=== PATIENT | female | born 1975 | race Caucasian/White ===

== ENCOUNTER 2019-03-03 15:19 | Emergency (ER) | payer SELFPAY ==
--- NOTE | 2019-03-03 15:24 | Emergency Department Report ---
Blank Doc - Documentation Documentation: 44 y o Diabetic female was sent to Ed from clinic due to elevated glucose due to no meds in 6 months here for treatment denies pain, n/v/d or any complaints
[2019-03-03 15:27] VITALS: BP 125/50
[2019-03-03 15:50] LABS: Basophils % (Auto) 0.7 % (0.0-1.8); Eosinophils # (Auto) 0.2 K/mm3 (0.0-0.4); Eosinophils % (Auto) 2.5 % (0.0-4.3); Lymphocytes # (Auto) 1.9 K/mm3 (1.2-5.4); Lymphocytes % (Auto) 29.4 % (13.4-35.0); Mean Corpuscular HGB Conc 33 % (30-34); Mean Corpuscular Volume 78 fl (79-97); Monocytes # (Auto) 0.5 K/mm3 (0.0-0.8); Monocytes % (Auto) 7.3 % (0.0-7.3); Platelet Count 281 K/mm3 (140-440); Red Cell Distribution Width 14.5 % (13.2-15.2)
[2019-03-03 16:07] LABS: Bacteria,Urine 1+ /HPF (Negative); Bilirubin,Urine NEG (Negative); Blood,Urine MOD (Negative); Color,Urine Straw (Yellow); Protein,Urine <15 mg/dL mg/dL (Negative); Urobilinogen,Urine < 2.0 mg/dL (<2.0)
[2019-03-03 16:21] LABS: Alanine Aminotransferase 15 units/L (7-56); Albumin 3.6 g/dL (3.9-5); BUN/Creatinine Ratio 35; Blood Urea Nitrogen 14 mg/dL (7-17); Hemolysis Index 6
[2019-03-03] MEDS ORDERED: HumuLIN R IV ONE (16:32)
[2019-03-03] MEDS ORDERED: NACL 0.9% 1000 ML 1,000 ML IV ONE (16:32)
[2019-03-03 16:42] LABS: HCG Qualitative,Urine Negative (Negative)
--- NOTE | 2019-03-03 16:46 | Emergency Department Report ---
ED General Adult HPI - General Chief complaint: Hyperglycemia Stated complaint: HYPERGLYCEMIA Time Seen by Provider: 03/03/19 15:20 Source: patient, family, old records reviewed Mode of arrival: Ambulatory Limitations: Language Barrier - History of Present Illness Initial comments: 44-year-old female with a past medical history of sub-[id number] diabetes presents to the hospital complaints of hypoglycemia. Patient was at her primary care doctor's office when her glucose was found to be elevated. She's noncompliant with her unknown oral medication 6 months. She states she feels fine other than increased urinary frequency. She denies dysuria, dizziness, shortness of breath, nausea, vomiting, abdominal pain, or extremity pain. - Related Data Previous Rx's Medication Instructions Recorded Last Taken Type Acetaminophen/Codeine [Tylenol #3] 1 tab PO Q6H PRN #10 tab 05/15/14 Unknown Rx Ibuprofen [Motrin] 800 mg PO Q8H PRN #14 tablet 05/15/14 Unknown Rx metFORMIN [Glucophage] 500 mg PO BID #60 tablet 03/03/19 Unknown Rx Allergies Allergy/AdvReac Type Severity Reaction Status Date / Time No Known Allergies Allergy Unverified 05/15/14 09:00 ED Review of Systems ROS: Stated complaint: HYPERGLYCEMIA Other details as noted in HPI Comment: All other systems reviewed and negative ED Past Medical Hx - Past Medical History Previous Medical History?: Yes Hx Diabetes: Yes - Surgical History Past Surgical History?: No - Social History Smoking Status: Never Smoker Substance Use Type: Prescribed - Medications Home Medications: Home Medications Medication Instructions Recorded Confirmed Last Taken Type Acetaminophen/Codeine [Tylenol #3] 1 tab PO Q6H PRN #10 tab 05/15/14 Unknown Rx Ibuprofen [Motrin] 800 mg PO Q8H PRN #14 tablet 05/15/14 Unknown Rx metFORMIN [Glucophage] 500 mg PO BID #60 tablet 03/03/19 Unknown Rx ED Physical Exam - General Limitations: Language Barrier - Other Other exam information: General: No limitations, patient is alert in no acute distress Head exam: Atraumatic, normocephalic Eyes exam: Normal appearance, nonicteric sclera intact ENT: Moist mucous membrane Neck exam: Normal inspection, full range of motion, no meningismus nontender Respiratory exam: Clear to auscultation bilateral, no wheezes, rales, crackles Cardiovascular: Normal rate and rhythm, normal heart sounds Abdomen: Soft, nondistended, and nontender, with normal bowel sounds, no rebound, or guarding Extremity: Full range of motion normal inspection no deformity Back: Normal Inspection, full range of motion, no tenderness Neurologic: Alert, oriented x3, cranial nerves intact, no motor or sensory deficit Psychiatric: normal affect, normal mood Skin: Warm, dry, intact ED Course Vital Signs 03/03/19 03/03/19 15:23 17:54 Temperature 98.6 F Pulse Rate 89 Respiratory 18 18 Rate Blood Pressure 125/50 O2 Sat by Pulse 98 98 Oximetry ED Medical Decision Making - Lab Data Result diagrams: 03/03/19 15:38 03/03/19 15:38 Lab Results 03/03/19 03/03/19 03/03/19 Range/Units 15:33 15:38 15:38 WBC 6.3 (4.5-11.0) K/mm3 RBC 5.00 (3.65-5.03) M/mm3 Hgb 13.0 (10.1-14.3) gm/dl Hct 39.0 (30.3-42.9) % MCV 78 L (79-97) fl MCH 26 L (28-32) pg MCHC 33 (30-34) % RDW 14.5 (13.2-15.2) % Plt Count 281 (140-440) K/mm3 Lymph % (Auto) 29.4 (13.4-35.0) % [place] % (Auto) 7.3 (0.0-7.3) % Eos % (Auto) 2.5 (0.0-4.3) % Baso % (Auto) 0.7 (0.0-1.8) % Lymph # 1.9 (1.2-5.4) K/mm3 [place] # 0.5 (0.0-0.8) K/mm3 Eos # 0.2 (0.0-0.4) K/mm3 Baso # 0.0 (0.0-0.1) K/mm3 Seg Neutrophils % 60.1 (40.0-70.0) % Seg Neutrophils # 3.8 (1.8-7.7) K/mm3 VBG pH (7.320-7.420) Sodium 134 L (137-145) mmol/L Potassium 3.9 (3.6-5.0) mmol/L Chloride 99.6 (98-107) mmol/L Carbon Dioxide 23 (22-30) mmol/L Anion Gap 15 mmol/L BUN 14 (7-17) mg/dL Creatinine 0.4 L (0.7-1.2) mg/dL Estimated GFR > 60 ml/min BUN/Creatinine Ratio 35 % Glucose 384 H (65-100) mg/dL POC Glucose 376 H (70-105) Calcium 9.0 (8.4-10.2) mg/dL Total Bilirubin 0.50 (0.1-1.2) mg/dL AST 13 (5-40) units/L ALT 15 (7-56) units/L Alkaline Phosphatase 101 (35-129) units/L Total Protein 7.1 (6.3-8.2) g/dL Albumin 3.6 L (3.9-5) g/dL Albumin/Globulin Ratio 1.0 % Urine Color (Yellow) Urine Turbidity (Clear) Urine pH (5.0-7.0) Ur Specific [place] (1.003-1.030) Urine Protein (Negative) mg/dL Urine Glucose (UA) (Negative) mg/dL Urine Ketones (Negative) mg/dL Urine Blood (Negative) Urine Nitrite (Negative) Urine Bilirubin (Negative) Urine Urobilinogen (<2.0) mg/dL Ur Leukocyte Esterase (Negative) Urine WBC (Auto) (0.0-6.0) /HPF Urine RBC (Auto) (0.0-6.0) /HPF U Epithel Cells (Auto) (0-13.0) /HPF Urine Bacteria (Auto) (Negative) /HPF Urine HCG, Qual (Negative) 03/03/19 03/03/19 03/03/19 Range/Units 15:38 15:40 15:40 WBC (4.5-11.0) K/mm3 RBC (3.65-5.03) M/mm3 Hgb (10.1-14.3) gm/dl Hct (30.3-42.9) % MCV (79-97) fl MCH (28-32) pg MCHC (30-34) % RDW (13.2-15.2) % Plt Count (140-440) K/mm3 Lymph % (Auto) (13.4-35.0) % [place] % (Auto) (0.0-7.3) % Eos % (Auto) (0.0-4.3) % Baso % (Auto) (0.0-1.8) % Lymph # (1.2-5.4) K/mm3 [place] # (0.0-0.8) K/mm3 Eos # (0.0-0.4) K/mm3 Baso # (0.0-0.1) K/mm3 Seg Neutrophils % (40.0-70.0) % Seg Neutrophils # (1.8-7.7) K/mm3 VBG pH 7.380 (7.320-7.420) Sodium (137-145) mmol/L Potassium (3.6-5.0) mmol/L Chloride (98-107) mmol/L Carbon Dioxide (22-30) mmol/L Anion Gap mmol/L BUN (7-17) mg/dL Creatinine (0.7-1.2) mg/dL Estimated GFR ml/min BUN/Creatinine Ratio % Glucose (65-100) mg/dL POC Glucose (70-105) Calcium (8.4-10.2) mg/dL Total Bilirubin (0.1-1.2) mg/dL AST (5-40) units/L ALT (7-56) units/L Alkaline Phosphatase (35-129) units/L Total Protein (6.3-8.2) g/dL Albumin (3.9-5) g/dL Albumin/Globulin Ratio % Urine Color Straw (Yellow) Urine Turbidity Clear (Clear) Urine pH 5.0 (5.0-7.0) Ur Specific [place] 1.037 H (1.003-1.030) Urine Protein <15 mg/dl (Negative) mg/dL Urine Glucose (UA) >=500 (Negative) mg/dL Urine Ketones Tr (Negative) mg/dL Urine Blood Mod (Negative) Urine Nitrite Neg (Negative) Urine Bilirubin Neg (Negative) Urine Urobilinogen < 2.0 (<2.0) mg/dL Ur Leukocyte Esterase Neg (Negative) Urine WBC (Auto) 2.0 (0.0-6.0) /HPF Urine RBC (Auto) 2.0 (0.0-6.0) /HPF U Epithel Cells (Auto) 1.0 (0-13.0) /HPF Urine Bacteria (Auto) 1+ (Negative) /HPF Urine HCG, Qual Negative (Negative) 03/03/19 03/03/19 Range/Units 17:19 18:28 WBC (4.5-11.0) K/mm3 RBC (3.65-5.03) M/mm3 Hgb (10.1-14.3) gm/dl Hct (30.3-42.9) % MCV (79-97) fl MCH (28-32) pg MCHC (30-34) % RDW (13.2-15.2) % Plt Count (140-440) K/mm3 Lymph % (Auto) (13.4-35.0) % [place] % (Auto) (0.0-7.3) % Eos % (Auto) (0.0-4.3) % Baso % (Auto) (0.0-1.8) % Lymph # (1.2-5.4) K/mm3 [place] # (0.0-0.8) K/mm3 Eos # (0.0-0.4) K/mm3 Baso # (0.0-0.1) K/mm3 Seg Neutrophils % (40.0-70.0) % Seg Neutrophils # (1.8-7.7) K/mm3 VBG pH (7.320-7.420) Sodium (137-145) mmol/L Potassium (3.6-5.0) mmol/L Chloride (98-107) mmol/L Carbon Dioxide (22-30) mmol/L Anion Gap mmol/L BUN (7-17) mg/dL Creatinine (0.7-1.2) mg/dL Estimated GFR ml/min BUN/Creatinine Ratio % Glucose (65-100) mg/dL POC Glucose 333 H 164 H (70-105) Calcium (8.4-10.2) mg/dL Total Bilirubin (0.1-1.2) mg/dL AST (5-40) units/L ALT (7-56) units/L Alkaline Phosphatase (35-129) units/L Total Protein (6.3-8.2) g/dL Albumin (3.9-5) g/dL Albumin/Globulin Ratio % Urine Color (Yellow) Urine Turbidity (Clear) Urine pH (5.0-7.0) Ur Specific [place] (1.003-1.030) Urine Protein (Negative) mg/dL Urine Glucose (UA) (Negative) mg/dL Urine Ketones (Negative) mg/dL Urine Blood (Negative) Urine Nitrite (Negative) Urine Bilirubin (Negative) Urine Urobilinogen (<2.0) mg/dL Ur Leukocyte Esterase (Negative) Urine WBC (Auto) (0.0-6.0) /HPF Urine RBC (Auto) (0.0-6.0) /HPF U Epithel Cells (Auto) (0-13.0) /HPF Urine Bacteria (Auto) (Negative) /HPF Urine HCG, Qual (Negative) - Medical Decision Making Glucose improved after insulin and normal saline. No signs of DKA or infection. Hypoglycemia secondary to medication noncompliance. Will be started on metformin and follow-up encouraged. - Differential Diagnosis DKA, hyperglycemia, medication compliance, dehydration Critical Care Time: No Critical care attestation.: If time is entered above; I have spent that time in minutes in the direct care of this critically ill patient, excluding procedure time. ED Disposition Clinical Impression: Uncontrolled diabetes mellitus, Noncompliance with medication regimen Disposition: DC- TO HOME OR SELFCARE Is pt being admited?: No Does the pt Need Aspirin: No Condition: Stable Instructions: Diabetes Mellitus Type 2 in Adults (ED) Additional Instructions: Take the medication as prescribed. Follow up with your doctor or the clinic/doctor provided. Return if symptoms worsen as indicated by your discharge instructions Prescriptions: metFORMIN [Glucophage] 500 mg PO BID #60 tablet Referrals: LOPEZ SULLIVAN MD [Primary Care Provider] - 3-5 Days Time of Disposition: 18:50
== END 2019-03-03 19:02 | disposition home or self-care (01) ==
LOC: ED 15:19
DX: E11.649 Type 2 diabetes mellitus with hypoglycemia without coma (principal); Z79.899 Other long term (current) drug therapy
CPT/HCPCS: 36415; 80053; 81001; 81025; 82805; 82962; 85025; 96361; 96374; 99284; J7030; J1815

== ENCOUNTER 2021-01-14 17:38 | Emergency (ER) | payer SELFPAY ==
[2021-01-14 18:00] VITALS: BP 131/59
--- NOTE | 2021-01-14 18:08 | Event Note ---
ED Screening Note Date of service: 01/14/21 Time: 18:07 ED Screening Note: 45-year-old female patient with history of diabetes, noncompliant with previously prescribed medication regimen, presents to the emergency department for further evaluation of hyperglycemia. Patient states that she went to an patient medical clinic earlier this morning for a checkup, and her blood glucose level was found to be over 500. She endorses increased urination over the last few days. She has previously been on Metformin, but is not currently taking any medication. She has never required home insulin for her diabetes. General: Awake, appropriately interactive, no acute distress. Neck: Supple. Full range of motion intact. Cardiovascular: Normal peripheral perfusion. Pulmonary: No respiratory distress. Patient is speaking normally without use of accessory muscles. Skin: No apparent rashes or lesions. Neurological: No facial asymmetry. Speech is clear. Follows commands. Patient is alert and oriented. Musculoskeletal: Moves all four extremities spontaneously with normal range of motion. Psych: Cooperative. Appropriate mood and affect. I have greeted and performed a focused rapid initial assessment of this patient. A comprehensive ED assessment and evaluation of the patient, analysis of all test results, and completion of the medical decision-making process will be conducted by additional ED providers. This initial assessment/diagnostic orders/clinical plan/treatment(s) is/are subject to change based on patients health status, clinical progression and re-assessment. Further treatment and workup at subsequent clinical provider's discretion. Patient/guardian urged not to elope from the ED as their condition may be serious if not clinically assessed and managed.
[2021-01-14 18:53] LABS: Bilirubin,Urine NEG (Negative); Blood,Urine SM (Negative); Color,Urine Straw (Yellow); Protein,Urine <15 mg/dL mg/dL (Negative); Urobilinogen,Urine < 2.0 mg/dL (<2.0)
[2021-01-14 18:55] LABS: Basophils # (Auto) 0.1 K/mm3 (0.0-0.1); Basophils % (Auto) 0.9 % (0.0-1.8); Eosinophils # (Auto) 0.2 K/mm3 (0.0-0.4); Eosinophils % (Auto) 2.4 % (0.0-4.3); Hematocrit 38.6 % (30.3-42.9); Hemoglobin 12.8 gm/dl (10.1-14.3); Lymphocytes # (Auto) 2.4 K/mm3 (1.2-5.4); Lymphocytes % (Auto) 31.5 % (13.4-35.0); Mean Corpuscular HGB Conc 33 % (30-34); Mean Corpuscular Volume 80 fl (79-97); Monocytes # (Auto) 0.5 K/mm3 (0.0-0.8); Monocytes % (Auto) 6.9 % (0.0-7.3); Platelet Count 276 K/mm3 (140-440); Red Blood Count 4.84 M/mm3 (3.65-5.03)
[2021-01-14 19:19] LABS: Alanine Aminotransferase 22 units/L (7-56); Albumin 3.5 g/dL (3.9-5); Blood Urea Nitrogen 9 mg/dL (7-17); Calcium 8.9 mg/dL (8.4-10.2); Hemolysis Index 5
[2021-01-14 19:49] LABS: BUN/Creatinine Ratio 30
--- NOTE | 2021-01-14 20:32 | Emergency Department Report ---
ED General Adult HPI - General Chief complaint: Hyperglycemia Stated complaint: ELEVATED BLOOD GLUCOSE Time Seen by Provider: 01/14/21 18:01 Source: patient Mode of arrival: Ambulatory Limitations: No Limitations - History of Present Illness Initial comments: 45-year-old female patient with history of diabetes, noncompliant with previously prescribed medication regimen, presents to the emergency department for further evaluation of hyperglycemia. Patient states that she went to an patient medical clinic earlier this morning for a checkup, and her blood glucose level was found to be over 500. She endorses increased urination over the last few days. She has previously been on Metformin, but is not currently taking any medication. She has never required home insulin for her diabetes. Denies fever, chills, chest pain, palpitations, shortness of breath, abdominal pain, nausea, vomiting, diarrhea, appetite changes. Denies all other complaints at this time. - Related Data Previous Rx's Medication Instructions Recorded Last Taken Type Acetaminophen/Codeine [Tylenol #3] 1 tab PO Q6H PRN #10 tab 05/15/14 Unknown Rx Ibuprofen [Motrin] 800 mg PO Q8H PRN #14 tablet 05/15/14 Unknown Rx metFORMIN [Glucophage] 500 mg PO BID #60 tablet 03/03/19 Unknown Rx metFORMIN [Glucophage] 500 mg PO BID 14 Days tablet 01/14/21 Unknown Rx Allergies Allergy/AdvReac Type Severity Reaction Status Date / Time No Known Allergies Allergy Verified 01/14/21 17:45 ED Review of Systems ROS: Stated complaint: ELEVATED BLOOD GLUCOSE Other details as noted in HPI Other: GENERAL: Negative for fever, chills, weight change, anorexia, fatigue. ENT: Negative for ear pain, difficulty hearing, sore throat, nasal congestion, epistaxis. CARDIOVASCULAR: Negative for chest pain, palpitations, lower extremity swelling. PULMONARY: Negative for cough, dyspnea, wheezing, orthopnea, cyanosis. GASTROINTESTINAL: Negative for abdominal pain, nausea, vomiting, diarrhea, constipation. MUSCULOSKELETAL: Negative for joint pain, joint swelling, myalgias, back pain, neck pain. NEUROLOGICAL: Negative for headache, seizure, syncope, paresthesias, weakness. INTEGUMENTARY: Negative for erythema, rash, diaphoresis, laceration, ecchymosis. HEMATOLOGICAL: Negative for hemoptysis, hematemesis, hematochezia, hematuria. PSYCHIATRIC: Negative for hallucinations, suicidal ideation, homicidal ideation, anxiety, depression. ENDOCRINE: Positive for polyuria. ED Past Medical Hx - Past Medical History Hx Diabetes: Yes - Social History Smoking Status: Never Smoker Substance Use Type: None - Medications Home Medications: Home Medications Medication Instructions Recorded Confirmed Last Taken Type Acetaminophen/Codeine [Tylenol #3] 1 tab PO Q6H PRN #10 tab 05/15/14 Unknown Rx Ibuprofen [Motrin] 800 mg PO Q8H PRN #14 tablet 05/15/14 Unknown Rx metFORMIN [Glucophage] 500 mg PO BID #60 tablet 03/03/19 Unknown Rx metFORMIN [Glucophage] 500 mg PO BID 14 Days tablet 01/14/21 Unknown Rx ED Physical Exam - General Limitations: No Limitations - Other Other exam information: General: Awake and alert. No acute distress. Head: Atraumatic, normocephalic. Eyes: EOMI. Pupils are equal and round. Normal sclera and conjunctiva. ENT: Oral mucosa is moist. Normal pharyngeal exam. Neck: Supple. No lymphadenopathy. Pulmonary: No respiratory distress. Clear to auscultation bilaterally. Cardiac: Regular rate and rhythm. Pulses are palpable and equal bilaterally. No lower extremity cyanosis or edema. Skin: Warm and dry. No rashes. Abdomen: Soft, non-tender, non-protuberant. No guarding, rigidity, or rebound. Bowel sounds are normal. No organomegaly or masses noted. Back: Normal alignment. No CVA tenderness. Extremities: Symmetrical. Full range of motion intact. Neurological: Alert and oriented, appropriately interactive, no focal deficits. Psych: Cooperative. Appropriate mood and affect. Speech is evenly metered. Thoughts are logically construed. ED Course Vital Signs 01/14/21 17:44 Temperature 99.2 F Pulse Rate 93 H Respiratory 18 Rate Blood Pressure 131/59 O2 Sat by Pulse 99 Oximetry ED Medical Decision Making - Lab Data Result diagrams: 01/14/21 18:33 01/14/21 18:33 - Medical Decision Making Differential diagnosis including but not limited to: DKA/HHS, urinary tract infection, pyelonephritis, hyperglycemia, dehydration, electrode abnormality, anemia On reevaluation, patient remains stable. Labs remarkable for hyperglycemia; pH and bicarbonate within normal range. Urinalysis without evidence of infection. Patient is hemodynamically stable, tolerating oral intake without difficulty. No clinical evidence to suggest diabetic emergency warranting further diagnostic work-up or emergent administration of insulin and/or IV fluids. Patient will be discharged home and restarted on her Metformin. Patient has been instructed to call her primary care provider to arrange follow-up within the week. Patient expressed understanding and is agreeable to plan of care. Lifestyle modifications discussed. Strict return precautions provided. Repeat exam is unremarkable and benign. History, exam, diagnostic testing, and current condition do not suggest worrisome pathology to warrant further testing, continued ED treatment, admission, or surgical evaluation at this point. Given the low probability of a significant medical illness, it would be more likely to result in harm than benefit to perform further testing at this stage. Discussed findings, presumptive diagnosis, need for follow-up and specific signs/symptoms that should prompt immediate return to the emergency department. Instructions were explained in detail to the patient in addition to giving written discharge information. Patient expressed understanding and was given the opportunity to ask questions, all of which were satisfactorily answered prior to discharge ho me. Critical care attestation.: If time is entered above; I have spent that time in minutes in the direct care of this critically ill patient, excluding procedure time. ED Disposition Clinical Impression: Hyperglycemia due to diabetes mellitus Disposition: DC-01 TO HOME OR SELFCARE Is pt being admited?: No Does the pt Need Aspirin: No Condition: Stable Instructions: Type 2 Diabetes Mellitus, Self Care, Adult, Diabetes Mellitus Type 2 in Adults (ED) Additional Instructions: Take Metformin as directed. Exercise daily. Eliminate all excess sugar from your diet. Follow-up with your primary care provider this week. Call tomorrow to schedule an appointment. Return to the emergency department immediately for new or worsening symptoms. Specifically, return to the emergency department immediately for pain, vomiting, difficulty breathing, dehydration, mental status changes, or any other concerns. Prescriptions: metFORMIN [Glucophage] 500 mg PO BID 14 Days tablet Referrals: JOSS RM MD [Staff Physician] - 3-5 Days Time of Disposition: 20:32
== END 2021-01-14 20:59 | disposition home or self-care (01) ==
LOC: ED 17:38
DX: E11.65 Type 2 diabetes mellitus with hyperglycemia (principal); Z79.899 Other long term (current) drug therapy
CPT/HCPCS: 36415; 80053; 81001; 82805; 82962; 83735; 84703; 85025; 99283